=== PATIENT | male | born 1970 | race African-American/Black ===

== ENCOUNTER 2021-10-15 21:57 | Inpatient (IN) | payer OTHER ==
[2021-10-16] MEDS ORDERED: NALOXONE HCL 0.4 MG/ML VIAL ONE
[2021-10-16] MEDS ORDERED: NALOXONE HCL 0.4 MG/ML VIAL IVPUSH ONE (00:06)
[2021-10-16 00:45] LABS: BASO % 0.3 % (0-2.0); HEMOGLOBIN 14.8 GM/dL (11.7-16.9); LYMPH % 9.3 % (8-40); MCH 28.6 pg (25.7-33.7); MCHC 34.4 g/dl (32.0-35.9); MEAN CELL VOLUME 83.1 fl (80-96); MEAN PLT VOLUME 8.2 fl (7.5-11.1); MONO % 8.6 % (3.8-10.2); NEUT % 81.8 % (42.8-82.8); PLATELET COUNT 244 10^3/uL (134-434); RBC 5.18 M/mm3 (4.00-5.60); RDW 14.6 % (11.9-15.9)
[2021-10-16 01:07] LABS: ALBUMIN 4.3 g/dl (3.4-5.0); CALCIUM 8.7 mg/dL (8.5-10.1)
[2021-10-16 01:09] LABS: CREATININE 1.4 mg/dL (0.55-1.3)
[2021-10-16 01:10] LABS: TOT PROT 7.9 g/dl (6.4-8.2)
[2021-10-16 01:11] LABS: BILIRUBIN,TOTAL 0.6 mg/dL (0.2-1)
[2021-10-16] MEDS ORDERED: SODIUM CHLORIDE 0.9% 500 ML INFUS.BAG IV ONE (01:17)
[2021-10-16] MEDS: NALOXONE HCL 2 MG in DEXTROSE 5%-WATER - 495 ML IV SCH ×2 (01:49→08:30)
[2021-10-16 04:14] VITALS: BMI 33.3
[2021-10-16] MEDS ORDERED: ONDANSETRON 4 MG/2 ML VIAL IVPUSH PRN ×2 (04:58→22:51)
[2021-10-16] MEDS ORDERED: ONDANSETRON 4 MG/2 ML VIAL IVPUSH STA (04:58)
[2021-10-16] MEDS ORDERED: FOLIC ACID INJECTION - 1 MG, THIAMINE HCL 100 MG, MULTIVIT INJECTION ADULT 10 ML in SOD... IVPB ONE (06:15)
[2021-10-16 07:00] LABS: METHADONE, UR NEGATIVE (NEGATIVE); OPIATES, URI NEGATIVE (NEGATIVE); URINE AMPHETAMINES NEGATIVE (NEGATIVE); URINE BARBITURATES NEGATIVE (NEGATIVE)
[2021-10-16 07:07] LABS: HEMATOCRIT 41.6 % (35.4-49); HEMOGLOBIN 14.3 GM/dL (11.7-16.9); MCH 28.5 pg (25.7-33.7); MCHC 34.3 g/dl (32.0-35.9); MEAN PLT VOLUME 8.4 fl (7.5-11.1); PLATELET COUNT 224 10^3/uL (134-434); RBC 5.01 M/mm3 (4.00-5.60); RDW 14.7 % (11.9-15.9); WHITE BLOOD COUNT 12.8 K/mm3 (4.0-10.0)
[2021-10-16 07:13] LABS: COCAINE, UR POSITIVE (NEGATIVE); PHENCYCLIDINE,URINE POSITIVE (NEGATIVE); URINE BENZODIAZEPINES NEGATIVE (NEGATIVE)
[2021-10-16 07:24] LABS: BLOOD UREA NITROGEN 33.3 mg/dL (7-18); CALCIUM 8.7 mg/dL (8.5-10.1)
[2021-10-16 07:28] LABS: CREATININE 1.1 mg/dL (0.55-1.3); PHOSPHOROUS 2.3 mg/dL (2.5-4.9)
[2021-10-16] MEDS ORDERED: THIAMINE HCL 200 MG/2 ML VIAL IVPB SCH (10:00)
[2021-10-16] MEDS ORDERED: MULTIVITAMINS (DAILY MVI) TABLET (FP) PO SCH (10:00)
[2021-10-16] MEDS ORDERED: FOLIC ACID 1 MG TABLET (FP) PO SCH (10:00)
[2021-10-16] MEDS: MAG HYDROX/ALH/SMC/DPHA/LIDO 240 ML MOUTHWASH MM SCH ×2 (13:10→17:14)
[2021-10-17] MEDS: MAG HYDROX/ALH/SMC/DPHA/LIDO 240 ML MOUTHWASH MM SCH ×2 (01:45→05:15)
[2021-10-17 02:41] VITALS: RESP 20
[2021-10-17 06:26] VITALS: BP 130/78; PULSE 73; TEMP 98.2
[2021-10-17 09:04] LABS: BASO % 0.9 % (0-2.0); EOS % 1.7 % (0-4.5); HEMATOCRIT 44.9 % (35.4-49); HEMOGLOBIN 14.9 GM/dL (11.7-16.9); LYMPH % 33.1 % (8-40); MCH 27.8 pg (25.7-33.7); MCHC 33.2 g/dl (32.0-35.9); MEAN CELL VOLUME 83.8 fl (80-96); MEAN PLT VOLUME 8.5 fl (7.5-11.1); MONO % 10.9 % (3.8-10.2); NEUT % 53.4 % (42.8-82.8); PLATELET COUNT 230 10^3/uL (134-434); RBC 5.36 M/mm3 (4.00-5.60); RDW 14.4 % (11.9-15.9); WHITE BLOOD COUNT 6.7 K/mm3 (4.0-10.0)
[2021-10-17 09:27] LABS: BLOOD UREA NITROGEN 17.7 mg/dL (7-18)
[2021-10-17 09:29] LABS: CREATININE 0.8 mg/dL (0.55-1.3)
[2021-10-17 09:31] LABS: BILIRUBIN,TOTAL 0.6 mg/dL (0.2-1); TOT PROT 6.6 g/dl (6.4-8.2)
[2021-10-17 09:32] LABS: ALBUMIN 3.4 g/dl (3.4-5.0)
[2021-10-17] MEDS ORDERED: THIAMINE HCL 200 MG/2 ML VIAL IVPB SCH (10:00)
[2021-10-17] MEDS ORDERED: MULTIVITAMINS (DAILY MVI) TABLET (FP) PO SCH (10:00)
[2021-10-17] MEDS ORDERED: FOLIC ACID 1 MG TABLET (FP) PO SCH (10:00)
== END 2021-10-17 11:25 | disposition left against medical advice (07) | DRG 816 ==
LOC: JER 21:57 → JERBED 10-16 00:17 → JICU 10-16 03:53 → J8W 10-16 22:42
PROVIDERS: ADMIT Internal Medicine Pulmonary Disease; ATTEND Internal Medicine
DX: T40.1X1A Poisoning by heroin, accidental (unintentional), initial encounter (principal); N17.9 Acute kidney failure, unspecified; G92.8 Other toxic encephalopathy; Y92.89 Other specified places as the place of occurrence of the external cause; I10 Essential (primary) hypertension; E86.0 Dehydration; R74.01 Elevation of levels of liver transaminase levels; F19.10 Other psychoactive substance abuse, uncomplicated; F17.210 Nicotine dependence, cigarettes, uncomplicated
CPT/HCPCS: 36415; 71045-TC-FY; 80048; 80053; 80307; 83735; 84100; 85025; 85027; 93005; 93010; 99285-25; C9803-CS; U0003; U0005

== ENCOUNTER 2023-06-14 11:05 | Inpatient (IN) | payer OTHER ==
[2023-06-14 11:45] VITALS: BMI 24.3
[2023-06-14] MEDS ORDERED: IBUPROFEN 400 MG TABLET (FP) PO PRN (13:40)
[2023-06-14] MEDS ORDERED: DICYCLOMINE HCL 10 MG CAPSULE PO PRN (13:40)
[2023-06-14] MEDS ORDERED: MAGNESIUM HYDROX 2400MG/30ML ORAL SUSPENSION 30 ML CUP PO PRN (13:40)
[2023-06-14] MEDS ORDERED: POLYETHYLENE GLYCOL (HEALTHYLAX) 3350 17 GM PACKET PO PRN (13:40)
[2023-06-14] MEDS ORDERED: BENZONATATE 200 MG CAPSULE PO PRN (13:40)
[2023-06-14] MEDS ORDERED: LOPERAMIDE HCL 2 MG CAPSULE PO PRN (13:40)
[2023-06-14] MEDS ORDERED: guaiFENesin 600 MG TABLET.ER (FP) PO PRN (13:40)
[2023-06-14] MEDS ORDERED: NALOXONE HCL 0.4 MG/ML VIAL IM PRN (13:40)
[2023-06-14] MEDS ORDERED: MAG HYDROX/AL HYDROX/SIMETH 30 ML UNIT-DOSE CUP PO PRN (13:40)
[2023-06-14] MEDS ORDERED: BISMUTH SUBSALICYLATE 262 MG/15 ML BTL PO PRN (13:40)
[2023-06-14] MEDS ORDERED: BENZOCAINE/MENTHOL (CHLORASEPTIC ) LOZENGE MM PRN (13:40)
[2023-06-14] MEDS ORDERED: NALOXONE HCL (KLOXXADO) 8 MG SPRAY NS PRN (13:40)
[2023-06-14] MEDS ORDERED: ACETAMINOPHEN 325 MG TABLET (FP) PO PRN (13:40)
[2023-06-14] MEDS: methaDONE HCL 10 MG TABLET (FOR DETOX USE ONLY) PO ONE (14:28)
[2023-06-14] MEDS ORDERED: methaDONE HCL 10 MG TABLET (FOR DETOX USE ONLY) ONE (14:31)
[2023-06-14] MEDS: cloNIDine HCL 0.1 MG TABLET PO ONE (14:52)
[2023-06-14] MEDS ORDERED: cloNIDine HCL 0.1 MG TABLET ONE (15:02)
[2023-06-14] MEDS: cloNIDine HCL 0.1 MG TABLET PO PRN (18:23)
[2023-06-14] MEDS: hydrOXYzine PAMOATE 25 MG CAPSULE (FP) PO PRN (18:23)
[2023-06-14] MEDS: METHOCARBAMOL 500 MG TABLET PO PRN (18:23)
[2023-06-14] MEDS: THIAMINE 100 MG TABLET PO SCH (22:55)
[2023-06-14] MEDS: MELATONIN 5 MG TABLETS PO SCH (22:55)
[2023-06-15] MEDS: ONDANSETRON *ODT* 4 MG TABLET SL PRN (06:09)
[2023-06-15] MEDS: PRENATAL VITAMINS W/ FOLIC ACID TABLET (FP) PO SCH (09:59)
[2023-06-15] MEDS: IBUPROFEN 600 MG TABLET (FP) PO PRN (10:02)
[2023-06-15 11:49] LABS: POTASSIUM 4.2 mmol/L (3.5-5.1)
[2023-06-15 11:50] LABS: HEMATOCRIT 46.5 % (35.4-49); HEMOGLOBIN 16.1 GM/dL (11.7-16.9); MCH 29.3 pg (25.7-33.7); MCHC 34.6 g/dl (32.0-35.9); MEAN CELL VOLUME 84.6 fl (80-96); MEAN PLT VOLUME 8.8 fl (7.5-11.1); PLATELET COUNT 263 10^3/uL (134-434); RBC 5.49 M/mm3 (4.00-5.60); RDW 13.5 % (11.9-15.9); WHITE BLOOD COUNT 3.4 K/mm3 (4.0-10.0)
[2023-06-15 11:53] LABS: CALCIUM 9.4 mg/dL (8.5-10.1)
[2023-06-15 11:54] LABS: ALBUMIN 3.3 g/dl (3.4-5.0); BLOOD UREA NITROGEN 17.1 mg/dL (7-18)
[2023-06-15 11:55] LABS: CREATININE 0.7 mg/dL (0.55-1.3)
[2023-06-15 11:57] LABS: BILIRUBIN,TOTAL 0.4 mg/dL (0.2-1); TOT PROT 6.6 g/dl (6.4-8.2)
[2023-06-15 12:44] VITALS: BP 165/93; PULSE 64; RESP 20; TEMP 97.8
[2023-06-16] MEDS ORDERED: methaDONE HCL 10 MG TABLET (FOR DETOX USE ONLY) PO ONE (10:00)
[2023-06-18] MEDS ORDERED: methaDONE HCL 10 MG TABLET (FOR DETOX USE ONLY) PO ONE (10:00)
== END 2023-06-15 15:30 | disposition left against medical advice (07) | DRG 770 ==
LOC: YASAS 11:05 → Y6N 14:14
PROVIDERS: ADMIT Allergy & Immunology; ATTEND Surgery
PROC: HZ2ZZZZ Detoxification Services for Substance Abuse Treatment (ICD-10-PCS; principal; 2023-06-14)
DX: F11.23 Opioid dependence with withdrawal (principal); F14.20 Cocaine dependence, uncomplicated; F17.210 Nicotine dependence, cigarettes, uncomplicated; I10 Essential (primary) hypertension; M17.0 Bilateral primary osteoarthritis of knee
CPT/HCPCS: 36415; 80053; 80307; 85027; 86780; 93005; 93010; Q0162